=== PATIENT | female | born 1980 | race Caucasian/White ===

== ENCOUNTER → 2023-07-15 15:45 | Outpatient (REF) | payer BC, SELFPAY | LOC: WDC 15:45 | PROVIDERS: ATTENDING PHYSICIAN Physician Assistant Medical | DX: Z12.31 Encounter for screening mammogram for malignant neoplasm of breast (principal) | CPT/HCPCS: 77063; 77067 ==

== ENCOUNTER → 2024-07-16 12:52 | Outpatient (REF) | payer BC, SELFPAY | LOC: WDC 12:52 | PROVIDERS: ATTENDING PHYSICIAN Physician Assistant Medical | DX: Z12.31 Encounter for screening mammogram for malignant neoplasm of breast (principal) | CPT/HCPCS: 77063; 77067 ==

== ENCOUNTER → 2025-03-01 07:11 | Outpatient (REF) | payer BC, SELFPAY | LOC: HWRAD 07:11 | PROVIDERS: ATTENDING PHYSICIAN Physician Assistant; FAMILY PHYSICIAN Physician Assistant Medical | DX: Z00.00 Encounter for general adult medical examination without abnormal findings (principal); R10.33 Periumbilical pain | CPT/HCPCS: 76700 ==